=== PATIENT | male | born 1975 | race Caucasian/White ===

== ENCOUNTER 2017-03-18 00:26 | Emergency (ER) | payer SELFPAY ==
[~2017-03-18] VITALS: Ht 167.6 cm; Wt 70.3 kg
[2017-03-18] MEDS ORDERED: IBUP-1007 PO (01:58)
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
[2017-03-18 02:15] VITALS: BP 111/77
[2017-03-18] MEDS ORDERED: IBUPROFEN 600 MG TABLET. PO ONE (02:30)
--- NOTE | 2017-03-18 07:36 | RAD ---
EXAM: Chest 2 views. HISTORY: Chest and rib pain. COMPARISON: None. FINDINGS: Frontal and lateral views of the chest are obtained. There are no confluent infiltrates. There is no pneumothorax or pleural effusion. The heart is not enlarged. IMPRESSION: 1. No confluent infiltrates.
== END 2017-03-18 02:20 | disposition home or self-care (01) ==
LOC: ER 00:26
DX: S20.212A Contusion of left front wall of thorax, initial encounter (principal); E11.9 Type 2 diabetes mellitus without complications; F10.10 Alcohol abuse, uncomplicated; F15.10 Other stimulant abuse, uncomplicated; G40.909 Epilepsy, unspecified, not intractable, without status epilepticus; Y08.89XA Assault by other specified means, initial encounter; Y93.89 Activity, other specified; Y99.8 Other external cause status; Y92.89 Other specified places as the place of occurrence of the external cause
CPT/HCPCS: 71020; 99284

== ENCOUNTER 2019-04-02 18:41 | Emergency (ER) | payer SELFPAY ==
[~2019-04-02] VITALS: Ht 167.6 cm; Wt 77.1 kg
[~2019-04-02 18:41] MED LIST: IBUP-1007 PO
[2019-04-02] MEDS ORDERED: IV NORMAL SALINE 1000ML BAG 1,000 ML IV ONE ×2 (19:15→21:15)
[2019-04-02] MEDS ORDERED: fentaNYL PF VIAL 100 MCG/2 ML VIAL IV ONE (19:15)
[2019-04-02] MEDS ORDERED: NEOMY/BACITR/POLYMYXIN OINT PACKET. TP ONE (19:15)
[2019-04-02 19:25] LABS: BASO % 0 % (0-3); EOS % 0 % (0-3); HEMATOCRIT 43.5 % (39.0-53.0); LYMPH # 0.6 x10^3/uL (1.0-4.8); LYMPH % 3 % (24-48); MEAN CORPUSCULAR HEMOGLOBIN 32 pg (25-35); MEAN CORPUSCULAR HGB CONC 35 g/dL (31-37); MEAN CORPUSCULAR VOLUME 92 fL (79-100); MONO % 5 % (0-9); NEUT # 17.8 x10^3uL (1.8-7.7); NEUT % 91 % (31-73); PLATELET COUNT 176 x10^3/uL (140-400); RED BLOOD COUNT 4.75 x10^6/uL (4.30-5.70); RED CELL DISTRIBUTION WIDTH 13.3 % (11.5-14.5); WHITE BLOOD COUNT 19.5 x10^3/uL (4.0-11.0)
[2019-04-02 19:34] LABS: CALCIUM 9.2 mg/dL (8.5-10.1); GFR 81.9; POTASSIUM 3.3 mmol/L (3.5-5.1)
[2019-04-02 19:40] LABS: ALBUMIN 3.5 g/dL (3.4-5.0); ALBUMIN/GLOBULIN RATIO 1.1 (1.0-1.7); C-REACTIVE PROTEIN 144.6 mg/L (0-3.3); MAGNESIUM 2.1 mg/dL (1.8-2.4); TOTAL BILIRUBIN 0.9 mg/dL (0.2-1.0); TOTAL PROTEIN 6.8 g/dL (6.4-8.2)
[2019-04-02] MEDS ORDERED: VANCOMYCIN 2 GM in IV NORMAL SALINE 500ML BAG 500 ML IV ONE (19:45)
[2019-04-02 19:51] LABS: % LYMPHS 4 % (24-48); % MONOS 3 % (0-10); % SEGS 93 % (35-66)
[2019-04-02 19:52] LABS: PLT ESTIMATE ADEQUATE (ADEQUATE)
--- NOTE | 2019-04-02 19:54 | RAD ---
Left wrist x-rays 3 views HISTORY: Left wrist pain, redness and swelling. FINDINGS: No fracture or dislocation of the wrist. There is abnormal widening of the scapholunate interval measuring 4 mm discrepant from the lunotriquetral distance of less than 2 mm raising suspicion of scapholunate ligament injury. IMPRESSION: No fracture or dislocation of the wrist. Widening of the scapholunate interval concerning for injury of the scapholunate ligament. Left hand x-rays 3 views HISTORY: Left hand pain, redness and swelling. FINDINGS: No fracture, dislocation or arthritic change. The soft tissues are unremarkable. IMPRESSION: No acute osseous injury of the left hand. Electronically signed by: Anshu Prince MD (04/02/2019 7:52 PM) [facility]
[2019-04-02] MEDS ORDERED: MORPHINE SULFATE 4 MG/ML VIAL. IV ONE (20:00)
[2019-04-02] MEDS ORDERED: CLINDAMYCIN 600MG PREMIX 50 ML IV ONE (20:00)
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
[2019-04-02 20:51] VITALS: BP 119/87
[2019-04-02] MEDS ORDERED: IV NORMAL SALINE 500ML BAG 500 ML IV ONE (21:15)
== END 2019-04-02 21:28 | disposition short-term general hospital (02) ==
LOC: ER 18:41
DX: M65.842 Other synovitis and tenosynovitis, left hand (principal); E87.2 Acidosis; R45.1 Restlessness and agitation; R42 Dizziness and giddiness; F15.20 Other stimulant dependence, uncomplicated; E11.9 Type 2 diabetes mellitus without complications
CPT/HCPCS: 36415; 73110; 73130; 80053; 83605; 83735; 85007; 85025; 85651; 85730; 86140; 87040; 96365; 96367; 96375; 99285; J2060; J2270; J3010; J3370; J3490; J7030; J7040; 96368